=== PATIENT | female | born 1975 | race Caucasian/White ===

== ENCOUNTER 2018-04-08 00:18 | Emergency (ER) | payer OTHER ==
[2018-04-08 00:23] VITALS: BP 138/98
--- NOTE | 2018-04-08 00:49 | EDPHY ---
General Time Seen by Provider: 04/08/18 00:27 Narrative: CLINICAL IMPRESSION: UTI ASSESSMENT/PLAN: 42-year-old female presents with 2 days of dysuria and urgency. She has a history of chronic UTIs and reports this feels very much like previous UTIs. No associated flank pain, nausea, vomiting, fever, chills, abdominal pain, abnormal discharge, vaginal bleeding. Patient denies . The urine dip suggestive of UTI with pyuria and hematuria. Patient also appears dehydrated. Urine culture ordered. Antibiotics initiated in the ED. Prescription provided, PCP follow-up encouraged, warning signs return to ED outlined discharge. DIFFERENTIAL DX: Differential includes but not limited to acute UTI, pyelonephritis, urethritis, vaginitis ED PROCEDURES: See lab and/or imaging results below CHIEF COMPLAINT: Dysuria HPI: 42-year-old female with a history of frequent UTIs presents to the emergency department 2 days of dysuria and urinary urgency. No associated fever, chills, flank pain, nausea, vomiting, abdominal pain, discharge, abnormal vaginal bleeding. Patient denies . PAST MEDICAL HISTORY: Chronic UTIs See triage summary and nurse notes for addition applicable history Pertinent Past Surgical History: None reported Family History: Noncontributory Social History: Otherwise healthy, smoker REVIEW OF SYSTEMS: A full 10 point review of systems was negative except for those mentioned in HPI. PHYSICAL EXAM: General Appearance: Alert, oriented, appropriate, cooperative, NAD, well hydrated, non-toxic appearing, VSS, no hypoxia. Respiratory: There are no retractions, lungs are clear to auscultation. Cardiac: Regular rate and rhythm, no murmurs or gallops. Gastrointestinal: Abdomen is soft, nontender, bowel sounds normal, no masses/ hernia, no rigidity, guarding or focal peritoneal findings. No flank pain Skin: Warm, dry, no rashes, no nodules on palpation. MEDICAL DECISION MAKING: Patient was seen independently. Secondary supervising physician at time of evaluation was: Dr. Moulton. Diagnosis: UTI . New, requires workup Summary: See Assessment and Plan for summary of ED visit Clinical lab tests: ordered / reviewed. Patient Progress: improved. - History Smoking Status: Light smoker - Objective Vital Signs: Initial Vital Signs Temperature (C) 36.8 C 04/08/18 00:20 Heart Rate 95 04/08/18 00:20 Respiratory Rate 18 04/08/18 00:20 Blood Pressure 138/98 H 04/08/18 00:20 O2 Sat (%) 95 04/08/18 00:20 O2 Delivery Mode Room Air Allergies/Adverse Reactions: No Known Allergies Allergy (Unverified 04/08/18 00:23) Home Medications: Medication Instructions Recorded Cephalexin [Keflex] 500 mg PO QID #20 cap 04/08/18 Laboratory Results: 04/08/18 00:30 Urine Color RAPHAEL Urine Appearance MODERATELY TURBID Urine pH 5.0 (5.0-7.5) Ur Specific [place] 1.032 H (1.002-1.030) Urine Protein 1+ H (NEGATIVE) Urine Ketones 2+ H (NEGATIVE) Urine Blood 1+ H (NEGATIVE) Urine Nitrate NEGATIVE (NEGATIVE) Urine Bilirubin NEGATIVE (NEGATIVE) Urine Urobilinogen 4.0 EU H EU (0.2-1.0) Ur Leukocyte Esterase 1+ H (NEGATIVE) Urine RBC 5-10 /hpf H /hpf (0-3) Urine WBC 15-25 /hpf H /hpf (0-3) Ur Epithelial Cells 3+ /lpf H /lpf (NONE-1+) Urine Bacteria TRACE /hpf H /hpf (NONE SEEN) Urine Mucus 4+ /lpf H /lpf (NONE-1+) Urine Glucose NEGATIVE (NEGATIVE) Medications Given: Discontinued Medications Cephalexin HCl (Keflex) 500 mg PO EDNOW ONE PRN Reason: Protocol Stop: 04/08/18 00:51 Last Admin: 04/08/18 00:53 Dose: 500 mg Departure - Departure Disposition: Home, Routine, Self-Care Clinical Impression: UTI (urinary tract infection) Qualifiers: Urinary tract infection type: acute cystitis Hematuria presence: with hematuria Qualified Code(s): N30.01 - Acute cystitis with hematuria Condition: Good Instructions: Urinary Tract Infection in Women (DC) Additional Instructions: DISCHARGE INSTRUCTIONS FROM YOUR DOCTOR Thank you for visiting our emergency department today. Please keep in mind that discharge from the emergency department does not mean that there is nothing wrong - it simply means that we have not identified an emergency condition that requires further evaluation or treatment in the hospital. You should always plan to follow up with primary care for re-evaluation of your condition in the next 2-3 days. If you have been referred to a specialist, please call as soon as possible (today or tomorrow) to schedule your follow up appointment at the appropriate time. YOU DO APPEAR TO HAVE A BLADDER INFECTION. ANTIBIOTICS WERE INITIATED IN THE ED AND A PRESCRIPTION WAS GIVEN. PLEASE TAKE THESE DIRECTED. DRINK PLENTY OF WATER. FOLLOW UP WITH PRIMARY CARE IN 3-4 DAYS TO RECHECK. RETURN TO THE ED SOONER FOR FLANK PAIN, FEVER, CHILLS, NAUSEA, VOMITING, ABDOMINAL PAIN, WORSENING SYMPTOMS OR ANY OTHER CONCERNS. People present with illnesses and injuries in different ways, and it is always possible that we have missed something. You may always return for re-evaluation if symptoms worsen or if they are not improving or if you develop new/different symptoms. Again, thank you for choosing our emergency department. We hope that you feel better. Referrals: Sharri Santiago PA [Primary Care Provider] - As per Instructions Prescriptions: Cephalexin [Keflex] 500 mg PO QID #20 cap
[2018-04-08] MEDS ORDERED: CEPHALEXIN 500 MG CAP PO ONE (00:50)
== END 2018-04-08 01:00 | disposition home or self-care (01) ==
DX: N30.01 Acute cystitis with hematuria (principal); F17.200 Nicotine dependence, unspecified, uncomplicated